=== PATIENT | male | born 1965 | race Caucasian/White ===

== ENCOUNTER 2024-06-23 08:15 | Outpatient (RCR) | payer BC, SELFPAY ==
[2024-06-23 08:25] VITALS: BP 164/97
[2024-06-23] MEDS: RABAVERT RABIES VACC W-DILUENT 2.5 UNIT IM (08:41)
== END 2024-06-24 08:51 | disposition home or self-care (01) ==
LOC: OID 08:15
PROVIDERS: ATTENDING PHYSICIAN Emergency Medicine
DX: Z20.3 Contact with and (suspected) exposure to rabies (principal); Z23 Encounter for immunization
CPT/HCPCS: 90471; 90675